=== PATIENT | female | born 1955 | race Native Hawaiian/Other Pacific Islander ===

== ENCOUNTER 2018-11-04 07:57 | Outpatient (CLI) | payer OTHER | END 2018-11-04 07:58 | disposition home or self-care (01) | LOC: C.LAB 07:57 | DX: E11.65 Type 2 diabetes mellitus with hyperglycemia (principal); I10 Essential (primary) hypertension; E04.2 Nontoxic multinodular goiter; E78.2 Mixed hyperlipidemia; E01.8 Other iodine-deficiency related thyroid disorders and allied conditions; E06.3 Autoimmune thyroiditis; E88.81 Metabolic syndrome and other insulin resistance; D51.9 Vitamin B12 deficiency anemia, unspecified; E55.9 Vitamin D deficiency, unspecified; E64.3 Sequelae of rickets; N30.00 Acute cystitis without hematuria ==